=== PATIENT | female | born 1980 | race African-American/Black ===

== ENCOUNTER 2025-05-30 21:17 | Emergency (ER) | payer OTHER ==
[~2025-05-30] VITALS: Ht 165.1 cm; Wt 101.0 kg
--- NOTE | 2025-05-30 21:32 | ED.PDOC ---
History of Present Illness HPI Comments PD catheter malfunction Comments patient has not been able to use PD since last night. both infusing dialysate and withdrawing if slowed. the return seems cloudy. pt denies pain or fever. she has had the same PD catheter since March Time Seen by MD: 21:19 Reviewed Notes: Nurses Notes, Medications, Allergies Information Source: Patient Mode of Arrival: Ambulatory Severity: Mild Timing: Days Duration: Since onset Past Medical History PAST MEDICAL HISTORY: ESRD, HTN Past Medical History (Other): MCTD, MGN Surgical History (Other): peritoneal dialysis catheter PHOTOGRAPHIC DOUBLE History: No Pertinent PHOTOGRAPHIC DOUBLE History Family History Family History: Reviewed,noncontributory to illness, No family hx of Cancer, No family hx of DM, No family hx of Heart norbert, No family hx of HTN, No family hx ofKidney norbert, No family hx of Liver norbert, No family hx of Lung norbert, No family hx of Stroke Constitutional: denies: chills, diaphoresis, fatigue, fever, malaise, sweats, weakness, others EENTM: denies: blurred vision, double vision, ear bleeding, ear discharge, ear drainage, ear pain, ear ringing, eye pain, eye redness, hearing loss, mouth pain, mouth swelling, nasal discharge, nose bleeding, nose congestion, nose pain, photophobia, tearing, throat pain, throat swelling, voice changes, others Respiratory: denies: cough, hemoptysis, orthopnea, SOB at rest, shortness of breath, SOB with excertion, stridor, wheezing, others Cardiovascular: denies: chest pain, dizzy spells, diaphoresis, Dyspnea on exertion, edema, irregular heart beat, left arm pain, lightheadedness, palpitations, PND, syncope, others Gastrointestinal: reports: others (PD catheter not working); denies: abdomen distended, abdominal pain, blood streaked bowels, constipated, diarrhea, dysphagia, difficulty swallowing, hematemesis, melena, nausea, poor appetite, poor fluid intake, rectal bleeding, rectal pain, vomiting Genitourinary: denies: abnormal vagina bleeding, burning, dyspareunia, dysuria, flank pain, frequency, hematuria, incontinence, pain, , vagina discha rge, urgency, others Neurological: denies: dizziness, fainting, headache, left sided numbness, left sided weakness, numbness, paresthesia, pre-existing deficit, right sided numbness, right sided weakness, seizure, speech problems, tingling, tremors, weakness, others Musculoskeletal: denies: back pain, gout, joint pain, joint swelling, muscle pain, muscle stiffness, neck pain, others Integumetry: denies: bruises, change in color, change in hair/nails, dryness, laceration, lesions, lumps, rash, wounds, others Allergic/Immunocompromised: denies: Difficulty Healing, Frequent Infections, Hives, Itching, others Hematologic/Lymphatic: denies: anemia, blood clots, easy bleeding, easy bruising, swollen glands, others Endocrine: denies: excessive hunger, excessive sweating, excessive thirst, excessive urination, flushing, intolerance to cold, intolerance to heat, unexplained weight gain, unexplained weight loss, others Psychiatric: denies: anxiety, bipolar disorder, depression, hopeless, panic disorder, schizophrenia, sleepless, suicidal, others All Other Systems: Reviewed and Negative Physical Exam General Appearance: No Apparent Distress, Normal HEENT: Normal ENT Inspection, Pharynx Normal, TMs Normal Neck: Full Range of Motion, Non-Tender, Normal, Normal Inspection Respiratory: Chest Non-Tender, Lungs Clear, No Accessory Muscle Use, No Respiratory Distress, Normal Breath Sounds Cardiovascular: No Edema, No JVD, No Murmur, No Gallop, Normal Peripheral Pulses, Regular Rate/Rhythm Breast Exam: Deferred Gastrointestinal: No Organomegaly, Non Tender, No Pulsatile Mass, Normal Bowel Sounds, Soft, Other (PD site is clean and intact. tubing with clear content. abdomen is soft, nontender) Genitalia: Deferred Pelvic: Deferred Rectal: Deferred Extremities: No calf tenderness, Normal capillary refill, Normal inspection, Normal range of motion, Non-tender, No pedal edema Musculoskeletal : Apperance: Normal Neurologic: Alert, correction lieutenant II-XII nml as Tested, No Motor Deficits, Normal Affect, Normal Mood, No Sensory Deficits Cerebellar Function: Normal Reflexes: Normal Skin: Dry, Normal Color, Warm Lymphatic: No Adenopathy Was a procedure done? Was a procedure done?: No Differential Dx Considerations may include: peritonitis, PD catheter occlusion, malposition, infection Time of 1ST Reevaluation: 21:32 Reevaluation 1ST: Unchanged Patient Education/Counseling: Diagnosis, Treatment, Prognosis, Need For Follow Up Family Education/Counseling: No Family Present Comments i initiated the workup for this patient, but with my shift ending at 10PM, i will sign out to Dr Murphy SEPSIS Sepsis Screen Physician Orders Body Fluid Culture W/ Gs (05/30/25 21:23) Glucose Body Fluid (05/30/25 21:23) Protein, Body Fluid (05/30/25 21:23) Complete Blood Count (05/30/25 21:23) Basic Metabolic Panel (05/30/25 21:23) Ct Ab Pel Wo Con-No Oral Or Iv (05/30/25 21:23) Peritoneal Dialysis (05/30/25 21:23) Departure 1 Departure Time of Disposition: 21:45 Impression: Primary Impression: Peritoneal dialysis catheter dysfunction Qualified Codes: T85.611A - Breakdown (mechanical) of intraperitoneal dialysis catheter, initial encounter Disposition: 30 STILL A PATIENT Condition: Stable Discharged With: Self Critical Care Note Critical Care Time?: No Stability Stability form required: No TIN GALVAN MD May 30, 2025 21:32
--- NOTE | 2025-05-30 22:02 | DVH ---
Exam: CT CT AB PEL WO CON-NO ORAL OR IV History: PD catheter position, occlusion Comparison Study: None Technique: Multidetector spiral CT of the abdomen was performed from lung bases to pubic symphysis. Imaging was performed without IV contrast. Axial, coronal and sagittal multiplanar reformats were ob tained from the axial data set by the technologist. Radiation Dose : 1. Abdomen/Pelvis: CTDIvol 20 mGy, DLP 1032 mGy*cm. Findings: Evaluation of solid organs is limited due to lack of intravenous contrast use. Lung Bases: No acute or significant lung base finding. Normal heart size. No pleural or pericardial effusion. Liver: The liver is normal in size. No focal lesions. Gallbladder and Biliary Tree: Unremarkable Spleen: Unremarkable Pancreas: The pancreas is grossly normal in appearance. Adrenal Glands: Unremarkable Kidneys: Kidneys are grossly normal without calculi or hydronephrosis. Bladder: Grossly unremarkable for degree of distention. Bowel: The stomach is grossly normal in appearance. Small bowel and colon are normal in caliber and d istribution. The appendix is not visualized; however, no secondary findings of acute appendicitis id entified. Ascites: Absent. Peritoneal drainage catheter is seen coiled in the lower midline pelvis Lymphadenopathy: No mesenteric, retroperitoneal or periportal lymphadenopathy. Abdominal Wall and Mesentery: Unremarkable. Vasculature: The visualized abdominal aorta is normal in size and caliber. Evaluation of abdominal a nd pelvic vessels is limited due to lack of intravenous contrast. Pelvic Organs: Unremarkable Musculoskeletal: No aggressive focal bony lesions, acute fractures or dislocation. IMPRESSION: 1. No acute abdominal or pelvic findings. 2. Peritoneal drainage catheter is seen coiled in the lower midline pelvis. No adjacent fluid collect ion. No kinks. Radiation optimization: All CT scans at this facility use at least one of these dose optimization lico hniques: automated exposure control mA and/or kV adjustment per patient size (includes targeted exam s where dose is matched to clinical indication) or iterative reconstruction.
[2025-05-30 22:04] VITALS: BP 126/72; PULSE 94; RESP 18; TEMP 99; O2SAT 100
[2025-05-30 22:08] LABS: Chloride 106 mmol/L (98-107); Hematocrit 35.5 % (36.0-46.0); Hemoglobin 11.6 g/dL (12.2-16.2); Mean Corpuscular Hemoglobin 31.4 pg (28.0-32.0); Mean Corpuscular Volume 96.2 fL (80.0-100.0); Nucleated Red Blood Cells % 0.1 %; Potassium 4.3 mmol/L (3.5-5.1); Sodium 138 mmol/L (136-145)
[2025-05-30 22:09] LABS: Anion Gap 12 (5-15)
[2025-05-30 22:14] LABS: BUN/Creatinine Ratio 11.5 (10.0-20.0); Glucose 84 mg/dL (74-106)
[2025-05-30 22:25] LABS: Blood Urea Nitrogen 66 mg/dL (9-23); Calcium 8.7 mg/dL (8.7-10.4); Carbon Dioxide 20 mmol/L (20-31)
== END 2025-05-31 00:46 | disposition home or self-care (01) ==
LOC: ER 21:17
DX: T85.611A Breakdown (mechanical) of intraperitoneal dialysis catheter, initial encounter (principal); I12.0 Hypertensive chronic kidney disease with stage 5 chronic kidney disease or end stage renal disease; N18.6 End stage renal disease; Z99.2 Dependence on renal dialysis; Z79.899 Other long term (current) drug therapy
CPT/HCPCS: 36415; 74176; 80048; 85025